=== PATIENT | female | born 1955 | race African-American/Black ===

== ENCOUNTER 2016-07-13 18:11 | Emergency (ER) | payer BC ==
[~2016-07-13] VITALS: Ht 152.4 cm; Wt 71.2 kg
[~2016-07-13 18:11] MED LIST: BLOOD PRESSURE MED; NOHOMEMEDICATIONS; NORCO 5-325 TA1 EACH PO; PREDNISONE 20 M20 MG PO; PROTONIX40 M2 PO
[2016-07-13] MEDS ORDERED: TRAMADOL 50 MG50 MG PO (19:19)
[2016-07-13] MEDS ORDERED: MOBIC7.5 MG PO (20:06)
== END 2016-07-13 20:31 | disposition home or self-care (01) ==
LOC: ER 18:11
DX: M25.551 Pain in right hip (principal); I10 Essential (primary) hypertension; Z96.641 Presence of right artificial hip joint; V49.40XA Driver injured in collision with unspecified motor vehicles in traffic accident, initial encounter; Y93.I9 Activity, other involving external motion; Y92.89 Other specified places as the place of occurrence of the external cause; Y99.8 Other external cause status